=== PATIENT | female | born 1950 | race Caucasian/White ===

== ENCOUNTER 2025-03-12 23:08 | Inpatient (IN) | payer MEDICARE, OTHER, SELFPAY ==
[2025-03-12] VITALS (12 sets, daily range): BP systolic 99–176; BP diastolic 60–113; BMI 32.6; BMI 31.5
[2025-03-12 15:19] LABS: % Basophils 0.5 % (0-2); % Eosinophils 2.6 % (0-6); % Immature Granulocytes 0.3 % (0-0.5); % Monocytes 8.3 % (1.7-9.3); % Neutrophils 47.3 % (42.2-75.2); Absolute Basophils 0.1 10^3/uL (0-0.2); Absolute Eosinophils 0.3 10^3/uL (0-0.7); Absolute Lymphocytes 5.4 10^3/uL (1.2-3.4); Absolute Monocytes 1.1 10^3/uL (0.1-0.6); Absolute Neutrophils 6.2 10^3/uL (1.4-6.5); Hematocrit 40.2 % (37.0-47.0); Hemoglobin 13.4 g/dL (12.0-16.0); Mean Corp Hgb Conc. 33.3 g/dL (33.0-37.0); Mean Corpuscular Hgb 32.9 pg (27.0-31.0); Mean Corpuscular Volume 98.8 fL (81.0-99.0); Mean Platelet Volume 9.5 fL (7.4-10.4); Nucleated Red Blood Cells % 0 %; Platelet Count 342 10^3/uL (130-400); Red Blood Cell Count 4.07 10^6/uL (4.20-5.40); Red Cell Dist. Width 13.4 % (11.5-14.5); White Blood Cell Count 13.1 10^3/uL (4.8-10.8)
[2025-03-12 15:38] LABS: ALT (SGPT) 31 U/L (0-35); AST (SGOT) 27 U/L (14-36); Albumin 4.5 g/dl (3.5-5.0); Alkaline Phosphatase 55 U/L (38-126); Blood Urea Nitrogen 9 mg/dl (7-17); Calcium 9.3 mg/dl (8.4-10.2); Carbon Dioxide 28 mmol/L (22-30); Chloride 106 mmol/L (98-107); Glucose 119 mg/dl (70-99); Potassium 3.8 mmol/L (3.5-5.1); Sodium 140 mmol/L (135-145); Total Bilirubin 0.7 mg/dl (0.2-1.3); Total Protein 7.9 g/dl (6.3-8.2); eGFR > 60.00
--- NOTE | 2025-03-12 20:31 | ED.GENMED ---
History of Present Illness
General
Chief Complaint: Abdominal Pain
Source: patient
Time Seen by Provider: 03/12/25 20:24
History of Present Illness
History of Present Illness:
75-year-old female with past medical history of previous CVA, hypercholesterolemia and atrial fibrillation presenting to the emergency department for evaluation of right lower quadrant abdominal pain that started yesterday morning as generalized
abdominal pain which gradually moved to the right lower quadrant accompanied with mild nausea and today decreased p.o. intake to both solids and liquids. Patient denies any fevers, chills, rigors, bowel changes or urinary symptoms. She did not
take anything for symptoms prior to arrival. Denies any history of similar. Does note a surgical history of previous cholecystectomy, delivery and splenectomy.
Past History
Past History
ED Past Medical History: Arrthythmia, CVA and Hypercholesterolemia
ED Past Surgical History: Brain, Cholecystectomy and Other
Social History
Tobacco: Non-smoker
Alcohol: None
Drug: None
Personal:
Living: with family
Review of Systems
Review of Systems
All Other Systems: ROS reviewed and negative except as documented in HPI and ROS
Phy Exam
Physical Exam
Physical Exam:
GENERAL: Alert , in no apparent distress
EYE: clear conjunctiva b/l
HEAD: NCAT
ENT: mmm.
CARDIAC: Regular rate and rhythm .
LUNGS: Clear breath sounds bilaterally, no acute respiratory distress, no wheezes/rales/rhonchi
ABDOMEN: Firm, pain within the right lower quadrant , guarding with palpation of the right lower abdomen no cvat, negative Esparza sign, tenderness at McBurney's point
NEUROLOGICAL: Alert and oriented
SKIN: Warm and dry, skin intact.
MUSCULOSKELETAL: No edema, well perfused.
PSYCH: Normal and appropriate interaction.
Scores
Heart Failure Risk
Heart Failure Risk Score: Not Applicable
Heart Score for Chest Pain Patients
STEMI patient?: Not applicable
Withdrawal Assessment of Alcohol
Withdrawal Assessment Completed?: Not applicable
Course
Orders/Labs/Results
Orders:
Orders
03/12/25 15:06
CBC/With Diff [Complete Blood Count/With Diff] Urgent
Comprehensive Metabolic Panel Urgent
03/12/25 20:25
CT Abd/pelvis W Iv Cont Urgent
Comment:
Reason For Exam: lower abd pain
03/12/25 20:30
Morphine Sulfate 2 mg IV NOW STA
03/12/25 20:37
PTT Urgent
Prothrombin Time Urgent
03/12/25 21:34
Piperacillin/Tazo 3.375 Gram [Zosyn] 3.375 gram in 50 ml IV NOW
03/12/25 22:22
Admit/Transfer Patient As Directed
Co-Sign Provider:
Level of Care: Inpatient admission
Assign to:: Medical/Surgical
Physician / Group: Aida Aparicio
Diagnosis: acute appendicitis
Reason for Hospitalization: acute appendicitis
Expected length of stay greater than two midnights?: Yes
ELOS- Estimated Length of Stay in days: 3
I certify the patient meets the requirements for IP care: Yes
PRN Pain Medication Management As Directed
May give lesser potent ordered pain med per pt: Yes
preference::
Protocol:: Medication orders for pain may be administered in a
manner that supports deferring to patient preference
when the pt is:
- Requesting an ordered lesser potent pain medication.
Least to most potent pain medications are defined
as: acetaminophen < NSAID < tramadol < opioids
(morphine, oxycodone, hydromorphone).
- Requesting a lesser dose of the same medication IF
ORDERED.
- Requesting a less intrusive route of administration
if both routes are prescribed by the provider (PO <
IV).
03/12/25 22:23
Code Status As Directed
Resuscitation Status: Full Code
03/12/25 23:00
Flush (0.9% Sodium Chloride) [Flush (Nss)] See Dose Instructions IV PER PROTOCOL
Abnormal Lab Results
03/12/25
15:06
WBC 13.1 H 10^3/uL
(4.8-10.8)
RBC 4.07 L 10^6/uL
(4.20-5.40)
MCH 32.9 H pg
(27.0-31.0)
Absolute Lymphs (auto) 5.4 H 10^3/uL
(1.2-3.4)
Absolute Monos (auto) 1.1 H 10^3/uL
(0.1-0.6)
Glucose 119 H mg/dl
(70-99)
03/12/25 15:06
03/12/25 15:06
Vital Signs
Initial and Last Documented VS:
Initial Vital Signs
Temp Pulse Resp BP Pulse Ox
98.7 F 79 16 142/89 94
03/12/25 14:57 03/12/25 14:57 03/12/25 14:57 03/12/25 14:57 03/12/25 14:57
Last Documented Vital Signs
Temp Pulse Resp BP Pulse Ox
98.7 F 78 22 144/89 90
03/12/25 14:57 03/12/25 21:30 03/12/25 21:30 03/12/25 21:46 03/12/25 21:30
MDM/Problems Addressed
Differential Diagnosis Includes:
Appendicitis, renal/ureteral colic, diverticulitis, pancreatitis
MDM/Problems Addressed:
75-year-old female presenting to the ER for 1+ day of abdominal pain, initially generalized now isolated to the right lower quadrant. Patient's abdomen is firm, somewhat rigid and tender within the right lower quadrant. I have high degree of
suspicion for acute appendicitis. Labs were initiated on arrival which does show a leukocytosis of 13,000. Patient is on Eliquis due to her A-fib history, last dose was at 8 AM this morning. Currently in a normal sinus rhythm. Patient to be kept
NPO. CT of the abdomen and pelvis ordered. Morphine ordered for pain control (has tolerated this without any difficult past). Disposition pending
*Radiology
Radiology exam reviewed: radiology read reviewed
*Pulse Oximetry
Patient hypoxic: no
*Critical Care Note
Total Time (30-74mins, 75-104mins- exclusive of procedures): Not Applicable
Patient Management
Discussion with other providers: Hospitalist and [employer]osed [employer] Screen Watcher
Escalation/DeEscalation of care consider admission/obs:
Patient has acute uncomplicated appendicitis on CT. d/w general surgery. request admit to hospitalist team given patient is on Eliquis. Agrees with plan for antibiotics, keep n.p.o. Will evaluate in the morning. Hospitalist team is aware and
accepts for continued evaluation and treatment.
ED Attending Note
-
Portions of this chart may have been created with voice recognition software.� Occasional wrong word or��sound alike� substitutions may have occurred due to the inherent limitations of voice recognition software.
Discharge Plan
Departure
Patient Disposition: Admit
Date of Disposition: 03/12/25
Time of Disposition: 21:34
Presentation/result/management discussed w/ accepting /: Yovanny
Discharge Problem:
Acute appendicitis
Prescriptions:
No Action
atorvastatin 10 mg Tablet
10 mg PO HS
diltiazem HCl 180 mg Capsule,Extended Release 24hr
180 mg PO DAILY
aspirin 81 mg Tablet,Delayed Release (Dr/Ec)
81 mg PO DAILY
omeprazole 20 mg Capsule,Delayed Release(Dr/Ec)
20 mg PO DAILY
furosemide 20 mg Tablet
20 mg PO Q OTHER DAY
Eliquis 5 mg Tablet
5 mg PO BID
Referrals:
Abhishek Hung MD [Family Provider] -
Interventions
Interventions:
*Risk Screen - Suicide Last Done: 03/12/25 21:10
*General Assessment Last Done: 03/12/25 21:10
*Neglect/Abuse Screening Last Done: 03/12/25 14:57
*ED- Fall Risk Assessment Last Done: 03/12/25 21:10
*ED COVID-19 Vaccine History Last Done: 03/12/25 21:10
WT-Cngmjg-Krqtvxnpop Assessment Last Done: 03/12/25 21:10
Discharge Date and Time
Print Language: FRISIAN
[2025-03-12 20:55] LABS: INR 1.04; PT 14.1 Sec (11.4-14.6)
[2025-03-12 20:56] LABS: APTT 32.9 Sec (23.4-35.0)
--- NOTE | 2025-03-12 21:34 | EDRN ---
Patient has allergy to oxycodone. She has had tongue swelling when given once. Patient has had morphine IV with previous admissions without reactions
[2025-03-12] MEDS: ZOSYN 50 IV (21:55)
[2025-03-12] MEDS: MORPHINE SULFATE 2 MG IV (21:56)
--- NOTE | 2025-03-12 21:56 | HPS.HSE ---
Family Physician
-
Family Physician: Damon Hung
Chief Complaint
-
right lower quadrant abdominal pain
History of Present Illness
Patient is a 75-year-old female with past medical history significant for Hx CVA, hypercholesterolemia and atrial fibrillation who presented to [facility] ED for evaluation of right lower quadrant abdominal pain. Patient reports that pain started early
yesterday morning with associated diarrhea yesterday. She does report exertional dyspnea that is her baseline. Patient denies any fever, chills, cough, chest pain, nausea, vomiting, constipation or urinary symptoms.
Medical History
Past Medical History
Past Medical History: Reports Other
Additional Past Medical History:
Hx CVA
hypercholesterolemia
atrial fibrillation
Past Surgical History: Reports Other
Additional Past Surgical History:
brain biopsy 1988 benign
Lumpectomy rt 2003 [facility]
ruptured spleen
cholecystectomy
section x2
[facility]
cataract bilateral
Social History
Tobacco: Former Smoker (quit 30+ years ago)
Alcohol: Occasional (2 glasses of wine 3-4x a week)
Drug: None
Personal:
Living: With Family
Employment: Retired
Family History
Family History: Not pertinent
Allergies / Home Medications
Allergies reflects when Allergies were last updated in [facility].
Home Medications with original date entered in [facility]
Allergy/Medication List:
Allergies
Allergy/AdvReac Type Severity Reaction Status Date / Time
oxycodone [From Percocet] Allergy Severe Tongue Verified 03/12/25 21:39
Swelling
Home Medications
apixaban 5 mg tablet (Eliquis) 5 mg PO BID 03/12/25
aspirin 81 mg tablet,delayed release 81 mg PO DAILY 03/12/25
atorvastatin 10 mg tablet 10 mg PO HS 03/12/25
diltiazem HCl 180 mg capsule,extended release 24 hr 180 mg PO DAILY 03/12/25
furosemide 20 mg tablet 20 mg PO Q OTHER DAY 03/12/25
omeprazole 20 mg capsule,delayed release 20 mg PO DAILY 03/12/25
Review of Systems
-
History Source: Patient
Constitutional: Reports Chills
EENT: Reports No Symptoms
Respiratory: Reports Trouble Breathing (exertional SOB)
Cardiac: Reports No Symptoms
Abdomen/GI: Reports Abdominal Pain and Diarrhea
: Reports No Symptoms
Musculoskeletal: Reports No Symptoms
Skin: Reports No Symptoms
Neurological: Reports No Symptoms
Endocrine: Reports No Symptoms
Hematologic/Lymphatic: Reports No Symptoms
Psych: Reports No Symptoms
Physical Exam
Vital Signs
Vital Signs
Temp Pulse Resp BP Pulse Ox
98.7 F 78 22 144/89 90
03/12/25 14:57 03/12/25 21:30 03/12/25 21:30 03/12/25 21:46 03/12/25 21:30
Physical Exam
General: Well Developed, Well Nourished, No Apparent Distress, Comfortable and Conversant
HEENT: NormoCephalic, Moist mucous membranes, Atraumatic, Nose Appears Normal and Ears Appear Normal
Respiratory: Clear and Non Labored Respirations
Cardiac: S1/S2 and Regular Rhythm
Breast: Deferred by me
GI: Soft, Normal Bowel Sounds and Tender
Rectal: Deferred by Provider
Musculoskeletal: No Clubbing, No Cyanosis, Edema, Left Lower Extremity and Edema, Right Lower Extremity
Skin: Warm and IV/Catheter Site
Neuro: Awake, Alert, AO x 3 and Nonfocal/grossly intact
Hematologic/Lymphatic: No Lymphadenopathy
Psych: Calm and Intact Judgment/Insight
Laboratory Results
-
03/12/25 15:06
03/12/25 15:06
Laboratory Results
PT 14.1 Sec (11.4-14.6) 03/12/25 20:37
INR 1.04 03/12/25 20:37
APTT 32.9 Sec (23.4-35.0) 03/12/25 20:37
Total Bilirubin 0.7 mg/dl (0.2-1.3) 03/12/25 15:06
AST 27 U/L (14-36) 03/12/25 15:06
ALT 31 U/L (0-35) 03/12/25 15:06
Alkaline Phosphatase 55 U/L (38-126) 03/12/25 15:06
Data Reviewed
-
CT Scan: Report Reviewed by me (Abd/Pel: As described, CT findings highly suggestive of acute appendicitis. No evidence for abscess. No evidence for free intraperitoneal air. Increased peripheral interstitial markings in the visualized lower lungs,
likely mild interstitial fibrosis. Status post splenectomy with elevation of the )
Lab Data: Labs Reviewed by me (WBC 13.1, )
Impression/Plan
-
IMPRESSION/PLAN:
#acute appendicitis
right lower quadrant abdominal pain
WBC 13.1
Abd/Pel CT: As described, CT findings highly suggestive of acute appendicitis. No evidence for abscess. No evidence for free intraperitoneal air.
Increased peripheral interstitial markings in the visualized lower lungs, likely mild interstitial fibrosis.
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
Fatty infiltration of the liver.
Findings communicated by René coles with Johnson Garcia in the emergency department on March 12, 2025 at 2130 hours.
- Admit to med/surg
- Consult surgery
- pain regimen
- antiemetics
- supportive care
#hypercholesterolemia
- continue atorvastatin
#atrial fibrillation
- continue diltiazem
- hold Eliquis
#Hx CVA
- continue aspirin
#lower extremity edema
- continue Lasix
Code status: full code
DVT prophylaxis: SCDs
--- NOTE | 2025-03-12 22:16 | W.PN.UPDATE ---
Update Note
Progress Note Update
This is an addendum to H&P written by Roslyn Benavides on 03/12/2025.� Patient seen and examined independently with GUIDE DOG INSTRUCTOR.
75-year-old female past medical history of paroxysmal atrial fibrillation on Eliquis last taken at 8 AM this morning, prior CVA with linq monitor, COPD intermittently uses oxygen, hypercholesteremia, presenting with right lower quadrant abdominal
pain with mild nausea and decreased p.o. intake.� No fevers or chills.
Labs show leukocytosis.
CT abdomen pelvis shows acute appendicitis.� Increased peripheral interstitial markings likely interstitial fibrosis.
Patient with acute appendicitis.� N.p.o., gentle�IV fluids, hold Lasix, Zosyn, general surgery consulted.� Jennifer held.
[2025-03-12] MEDS: NSS 1000 IV (23:55)
[2025-03-13 00:49] VITALS: BMI 31.5
--- NOTE | 2025-03-13 01:05 | PTCARENOTE ---
Patient arrived to unit via stretcher around 23:30 with dx of Acute Appendicitis. AAOx3. Pleasant and cooperative with care. No signs of distress. Pain controlled at current time. Vitals stable. [address] at 2 liters post Morphine given in ED.
Oriented to unit. Call banerjee within reach.
[2025-03-13 07:00] VITALS: BP 109/69
--- NOTE | 2025-03-13 07:35 | W.PN.HOSP.TC ---
Today's Communication/Plan
-
Antibiotics.
Assessment / Plan
Assessment / Plan
Physical exam:
General: Acutely ill
HEENT: Normocephalic, Atraumatic and Moist Mucous Membranes
Respiratory: Clear to Auscultation; Negative Wheezes, Rales or Rhonchi
Cardiac: Regular Rhythm and S1/S2
GI: Soft, tender and Nondistended
Musculoskeletal: No Clubbing, No Cyanosis and No Edema
Neuro: Awake, Alert and Oriented
Psych: Calm
A/P:
Acute appendicitis:
Clear liquid diet today
Stop IV fluids
Restart IV antibiotics today, IV Zosyn
Surgery consult appreciated-plan for the OR tomorrow
History embolic CVA:
On antiplatelets, statins.
Holding anticoagulation
Paroxysmal A-fib:
Holding Eliquis-last dose yesterday morning 03/12
Continue Cardizem 180 mg daily
Hyperlipidemia:
Continue home statin
Chronic HFpEF:
Resume diuretics, Lasix 20 mg every 48 hours
Hold IV fluids
DVT prophylaxis:
SCDs
CODE STATUS:
Full code
Anticipated Discharge: 24 - 48 hours
Subjective/Interval History
-
Date of Service: March 13, 2025
Patient continues to have abdominal pain but much less than admission. No nausea or vomiting. No chest pain or shortness of breath. Afebrile
Objective Data
-
Labs:
Laboratory Results
03/12/25 03/13/25
20:37 07:17
WBC Pending
Hgb Pending
Hct Pending
Plt Count Pending
PT 14.1
INR 1.04
APTT 32.9
Sodium Pending
Potassium Pending
Chloride Pending
Carbon Dioxide Pending
BUN Pending
Creatinine Pending
Glucose Pending
Calcium Pending
Vital Signs:
Vital Signs
Temp Pulse Resp BP Pulse Ox
97.9 F 80 18 156/73 96
03/12/25 23:41 03/12/25 23:41 03/12/25 23:41 03/12/25 23:41 03/12/25 23:41
I&O
03/12/25 03/13/25 03/14/25
06:59 06:59 06:59
Intake Total 490 / 490
Balance 490 / 490
[2025-03-13 08:04] LABS: Hematocrit 40.5 % (37.0-47.0); Hemoglobin 13.4 g/dL (12.0-16.0); Mean Corp Hgb Conc. 33.1 g/dL (33.0-37.0); Mean Corpuscular Volume 99.8 fL (81.0-99.0); Mean Platelet Volume 9.8 fL (7.4-10.4); Platelet Count 340 10^3/uL (130-400); Red Blood Cell Count 4.06 10^6/uL (4.20-5.40); Red Cell Dist. Width 13.6 % (11.5-14.5); White Blood Cell Count 8.3 10^3/uL (4.8-10.8)
[2025-03-13 08:44] LABS: Blood Urea Nitrogen 8 mg/dl (7-17); Calcium 9.3 mg/dl (8.4-10.2); Carbon Dioxide 26 mmol/L (22-30); Chloride 107 mmol/L (98-107); Estimated Creatinine Clearance 79 ml/min; Glucose 115 mg/dl (70-99); Potassium 4.1 mmol/L (3.5-5.1); Sodium 139 mmol/L (135-145); eGFR > 60.00
[2025-03-13] MEDS: CARDIZEM CD 180 MG PO (09:02)
[2025-03-13] MEDS: ZOSYN 50 IV ×3 (09:02→20:22)
[2025-03-13] MEDS: ASPIR LOW (ENTERIC COATED) 81 MG PO (09:02)
[2025-03-13] MEDS: LASIX 20 MG PO (09:03)
[2025-03-13] MEDS: PROTONIX 40 MG PO (09:03)
--- NOTE | 2025-03-13 10:28 | CON.GS ---
Consultation
-
Date/Time Consultation Performed: 03/13/25
Requesting Provider: Chelsi
Performing Provider: Leesa
Reason for Consultation: Acute appendicitis
Medical History
-
Chief Complaint: Abd pain
History of Present Illness:
75F with acute onset abd pain that began 3 days ago as generalized abd pain and has since migrated to the [facility]. No radiation. A/w nausea, denies vomiting. Denies changes to urine, endorses diarrhea. Endorses mild anorexia. Denies f/c. On eliquis for
afib, last dose yesterday 10am. Reports improvement of pain overnight.
Past Medical History
Past Medical History: Other (CVA hypercholesterolemia atrial fibrillation)
Past Surgical History: Other (brain biopsy 1988 benign Lumpectomy rt 2003 [facility] ruptured spleen cholecystectomy section x2 rt breast bx 2003 [facility]. cataract bilateral)
Social History
Tobacco: Former Smoker
Alcohol: Occasional
Drug: None
Personal:
Living: With Family
Family History
Family History: Reviewed & Noncontributory
Allergies / Home Medications
Allergy/AdvReac Type Severity Reaction Status Date / Time
oxycodone [From Percocet] Allergy Tongue Verified 03/12/25 23:40
Swelling
�Medication �Instructions �Recorded �Confirmed �Type
apixaban 5 mg tablet (Eliquis) 5 mg PO BID 03/12/25 03/12/25 History
aspirin 81 mg tablet,delayed 81 mg PO DAILY 03/12/25 03/12/25 History
release
atorvastatin 10 mg tablet 10 mg PO HS 03/12/25 03/12/25 History
diltiazem HCl 180 mg 180 mg PO DAILY 03/12/25 03/12/25 History
capsule,extended release 24 hr
furosemide 20 mg tablet 20 mg PO Q OTHER DAY 03/12/25 03/12/25 History
omeprazole 20 mg capsule,delayed 20 mg PO DAILY 03/12/25 03/12/25 History
release
Review of Systems
-
A 10 point review of systems was completed, and was negative except as per HPI.
Physical Exam
Vital Signs
Temp Pulse Resp BP Pulse Ox
97.8 F 72 18 109/69 90
03/13/25 07:00 03/13/25 07:00 03/13/25 07:00 03/13/25 07:00 03/13/25 07:00
03/12/25 03/13/25 03/14/25
06:59 06:59 06:59
Actual Weight 88.507 kg
Body Mass Index (BMI) 31.5
Lab Results
03/13/25 07:17
03/13/25 07:17
WBC 8.3 10^3/uL (4.8-10.8) 03/13/25 07:17
Hgb 13.4 g/dL (12.0-16.0) 03/13/25 07:17
Hct 40.5 % (37.0-47.0) 03/13/25 07:17
Plt Count 340 10^3/uL (130-400) 03/13/25 07:17
Abs Immat Gran (auto) 0.0 10^3/uL (0-0.05) 03/12/25 15:06
Neutrophils % 47.3 % (42.2-75.2) 03/12/25 15:06
Physical Exam
General: Well Developed, Well Nourished and No Apparent Distress
GI: Soft, Non Distended, Tender (mild ttp to rlq, rovsing's negative, no r/r/g) and Obese
Skin: Warm and Dry
Neuro: AO x 3
Psych: Calm
Data Reviewed
-
CT Scan: Image Personally Visualized and interpreted, Report Reviewed by me and Discussed with Patient
Labs: Labs Reviewed by me and Discussed with Patient
Assessment / Plan
-
75F with uncomplicated acute appendicitis on eliquis
AFVSS, pain reportedly improved, remains ttp to rlq
Leukocytosis normalized
CT with mild stranding around appendix, no appendicolith, no sign of perforation or abscess
Given uncomplicated nature of appendicitis, clinical stability, and clinical / biochemical improvement, would defer surgery an additional 24 hours to allow eliquis washout and reduce risk of surgical bleeding
Plan:
CLD
IV abx
PRN pain meds
DVT ppx
NPO@MN for tentative lap appy tomorrow
[2025-03-13] MEDS: MORPHINE SULFATE 2 MG IV ×2 (13:17→20:30)
--- NOTE | 2025-03-13 14:45 | CM ---
Patient seen bedside, initial assessment completed. Patient is a 75-year-old female with past medical history significant for Hx CVA, hypercholesterolemia and atrial fibrillation who presented to [facility] ED for evaluation of right lower quadrant
abdominal pain.
Patient resides w/ spouse in a single story rancher style home- 1 small step to enter. Independent in all areas, has home O2 but does not use. Denies SNF/HC hx reported.
Address, point of contact and insurance
PCP: Fahad Hung
Pharmacy: [facility]
On IV abx, plan for OR tomorrow
Plan: Home, no needs likely
[2025-03-13 15:00] VITALS: BP 130/76
[2025-03-13] MEDS: LIPITOR 10 MG PO (20:23)
[2025-03-13 22:40] VITALS: BP 106/57
[2025-03-14] VITALS (15 sets, daily range): BP systolic 106–146; BP diastolic 57–91; BMI 31.4
[2025-03-14] MEDS: ZOSYN 50 IV ×4 (01:51→20:25)
[2025-03-14] MEDS: ASPIR LOW (ENTERIC COATED) PO (01:54)
[2025-03-14] MEDS: CARDIZEM CD PO (01:55)
[2025-03-14] MEDS: PROTONIX PO (01:55)
--- NOTE | 2025-03-14 01:55 | PTCARENOTE ---
Patient strict NPO at midnight therefore, no medications and/or clear liquids. AAO x 3, pleasant and cooperative. PRN IV morphine administered for RLQ pain management. OOB independent. Patient uses call banerjee appropriately. Anticipate appendectomy in
the AM. Eliquis on hold. Bed in lowest position. Call banerjee and personal belongings within reach.
[2025-03-14 07:12] LABS: % Eosinophils 4.7 % (0-6); % Immature Granulocytes 0.3 % (0-0.5); % Monocytes 9.4 % (1.7-9.3); % Neutrophils 42.6 % (42.2-75.2); Absolute Basophils 0.1 10^3/uL (0-0.2); Absolute Eosinophils 0.4 10^3/uL (0-0.7); Absolute Lymphocytes 3.3 10^3/uL (1.2-3.4); Absolute Monocytes 0.7 10^3/uL (0.1-0.6); Absolute Neutrophils 3.3 10^3/uL (1.4-6.5); Hematocrit 42.6 % (37.0-47.0); Hemoglobin 14.1 g/dL (12.0-16.0); Mean Corp Hgb Conc. 33.1 g/dL (33.0-37.0); Mean Corpuscular Hgb 33.1 pg (27.0-31.0); Mean Platelet Volume 9.5 fL (7.4-10.4); Nucleated Red Blood Cells % 0 %; Platelet Count 392 10^3/uL (130-400); Red Blood Cell Count 4.26 10^6/uL (4.20-5.40); Red Cell Dist. Width 13.6 % (11.5-14.5); White Blood Cell Count 7.8 10^3/uL (4.8-10.8)
[2025-03-14 07:39] LABS: Blood Urea Nitrogen 6 mg/dl (7-17); Calcium 9.4 mg/dl (8.4-10.2); Carbon Dioxide 33 mmol/L (22-30); Chloride 106 mmol/L (98-107); Estimated Creatinine Clearance 79 ml/min; Glucose 112 mg/dl (70-99); Potassium 4.6 mmol/L (3.5-5.1); Sodium 143 mmol/L (135-145); eGFR > 60.00
[2025-03-14] MEDS: MORPHINE SULFATE 2 MG IV (08:09)
--- NOTE | 2025-03-14 08:33 | W.PN.HOSP.TC ---
Today's Communication/Plan
-
Plan for surgery today-appendectomy
Assessment / Plan
Assessment / Plan
Physical exam:
General: Acutely ill
HEENT: Normocephalic, Atraumatic and Moist Mucous Membranes
Respiratory: Clear to Auscultation; Negative Wheezes, Rales or Rhonchi
Cardiac: Regular Rhythm and S1/S2
GI: Soft, tender and Nondistended
Musculoskeletal: No Clubbing, No Cyanosis and No Edema
Neuro: Awake, Alert and Oriented
Psych: Calm
A/P:
Acute appendicitis:
Npo today
Off IV fluids
On IV antibiotics, Zosyn
Surgery consult appreciated-plan for the OR today
History embolic CVA:
On antiplatelets, statins.
Holding anticoagulation
Paroxysmal A-fib:
Holding Eliquis-last dose morning 03/12
Continue Cardizem 180 mg daily
Hyperlipidemia:
Continue home statin
Chronic HFpEF:
Resume diuretics, Lasix 20 mg every 48 hours
Hold IV fluids
DVT prophylaxis:
SCDs
CODE STATUS:
Full code
Anticipated Discharge: Within 24 hours
Subjective/Interval History
-
Date of Service: March 14, 2025
Patient still having abdominal pain. No nausea or vomiting. Afebrile
Objective Data
-
Labs:
Laboratory Results
03/14/25
06:38
WBC 7.8
Hgb 14.1
Hct 42.6
Plt Count 392
Sodium 143
Potassium 4.6
Chloride 106
Carbon Dioxide 33 H
BUN 6 L
Creatinine 0.7
Glucose 112 H
Calcium 9.4
Vital Signs:
Vital Signs
Temp Pulse Resp BP Pulse Ox
97.9 F 74 18 106/57 93
03/13/25 22:40 03/13/25 22:40 03/13/25 22:40 03/13/25 22:40 03/13/25 22:40
I&O
03/13/25 03/14/25 03/15/25
06:59 06:59 06:59
Intake Total 490 / 490 540 / 540
Balance 490 / 490 540 / 540
--- NOTE | 2025-03-14 09:05 | W.PN.GS2 ---
Today's Communication / Plan
-
-- Laparoscopic appendectomy
Assessment / Plan
-
Patient is a 75 yo F p/w acute appendicitis
AVSS
Labs with normalization of WBC
The natural history and pathophysiology of appendicitis was reviewed. CT scan imaging as a relates to her appendix was reviewed. CT demonstrates significant mid body inflammation of the appendix without any clear evidence of perforation or abscess
formation, there is close proximity of this portion of her inflammation with the terminal ileum which also courses and inserts in a more lateral location compared to the base of the appendix. Options for management were reviewed. Prior discussions
and decision on surgical management.
Plan for a laparoscopic appendectomy. The procedure itself, as well as the risks, benefits, and alternatives was discussed. Specifically, we discussed the risks of bleeding (increased risks, last dose > 48 hours), infection, injury to surrounding
structures, staple line leak, need for open procedure. We discussed that she is at increased risk for operative complications given her delay in surgical management, potential for adhesions given her multiple prior open procedures, and morbid
obesity. Typical postprocedural recovery was discussed. All questions answered. Consent signed.
-- Laparoscopic appendectomy
-- NPO, IVF
-- Abx: Zosyn
Subjective Data
-
Date of Service: March 14, 2025
Pain improved but persistent. No fevers or chills. No nausea or vomiting. Symptoms began on Tuesday.
Objective Data
-
Intake and Output
03/13/25 03/14/25 03/15/25
06:59 06:59 06:59
Intake Total 490 / 490 540 / 540
Balance 490 / 490 540 / 540
Intake:
Oral fluids 540 / 540
IV fluids (Total) 490 / 490
Other:
Number of approximated MODERATE 2
amounts of urine
Number of approximated LARGE 1
amounts of urine
Vital Signs
Temp Pulse Resp BP Pulse Ox
97.9 F 85 20 134/85 100
03/14/25 07:00 03/14/25 07:00 03/14/25 07:00 03/14/25 07:00 03/14/25 07:00
Lab Results
03/14/25 06:38
03/14/25 06:38
Calcium 9.4 mg/dl (8.4-10.2) 03/14/25 06:38
Total Bilirubin 0.7 mg/dl (0.2-1.3) 03/12/25 15:06
AST 27 U/L (14-36) 03/12/25 15:06
ALT 31 U/L (0-35) 03/12/25 15:06
Alkaline Phosphatase 55 U/L (38-126) 03/12/25 15:06
Total Protein 7.9 g/dl (6.3-8.2) 03/12/25 15:06
Albumin 4.5 g/dl (3.5-5.0) 03/12/25 15:06
Physical Exam
-
Gen: NAD
Abd: soft, obese, tender to palpation in RLQ, ND, non-peritoneal, multiple prior midline incisions with puckering and indentation of lower abdomen
Patient has a milner catheter: No
Patient has a central line: No
--- NOTE | 2025-03-14 09:12 | W.SUR.PREOP ---
Pre-Operative Surgical Note
-
I have examined this patient prior to the performance of the scheduled procedure.
The patient's condition is unchanged from the time of the current History and
Physical and the patient is able to undergo the scheduled procedure.
--- NOTE | 2025-03-14 11:19 | W.IMMPOSTOP ---
Surgical Immed Post Op Note
-
Primary Surgeon: Deniz
Assisting Surgeon: None
Pre-op Diagnosis: Acute appendicitis
Post-op Diagnosis: Acute appendicitis
Procedure Performed: Laparoscopic appendectomy
Anesthesia Type: General
Specimen / Cultures:
1. Appendix
Estimated Blood Loss: 3 cc
Complications: None
Operative Findings:
1. Acutely inflamed non-perforated appendix
2. Mesentery taken with Vojuvet, base with jackson load stapler flush with cecum
Plan:
-- No PO therapeutic anticoagulation for 48 hours post-op
-- Continue abx while in the hospital
[2025-03-14] MEDS: NORMOSOL-R/PLASMALYTE-A 1000 IV ×2 (13:35→13:36)
[2025-03-14] MEDS: ULTRAM 50 MG PO (16:13)
[2025-03-14] MEDS: LOVENOX 40 MG SC (16:50)
[2025-03-14] MEDS: DILAUDID 0.5 MG IV (21:06)
[2025-03-14] MEDS: LIPITOR 10 MG PO (21:07)
[2025-03-15] MEDS: ZOSYN 50 IV ×2 (01:07→07:58)
[2025-03-15] MEDS: ULTRAM 50 MG PO (01:10)
[2025-03-15 02:50] VITALS: BP 121/75
[2025-03-15 06:00] VITALS: BMI 31.8
[2025-03-15 06:33] LABS: Hematocrit 40.6 % (37.0-47.0); Hemoglobin 13.4 g/dL (12.0-16.0); Mean Corpuscular Hgb 32.7 pg (27.0-31.0); Mean Platelet Volume 9.3 fL (7.4-10.4); Platelet Count 384 10^3/uL (130-400); Red Cell Dist. Width 13.2 % (11.5-14.5)
[2025-03-15 06:56] LABS: Blood Urea Nitrogen 12 mg/dl (7-17); Calcium 9.4 mg/dl (8.4-10.2); Carbon Dioxide 29 mmol/L (22-30); Chloride 107 mmol/L (98-107); Estimated Creatinine Clearance 93 ml/min; Glucose 141 mg/dl (70-99); Potassium 4.6 mmol/L (3.5-5.1); Sodium 141 mmol/L (135-145); eGFR > 60.00
[2025-03-15 07:00] VITALS: BP 136/81
[2025-03-15] MEDS: ASPIR LOW (ENTERIC COATED) 81 MG PO (07:58)
[2025-03-15] MEDS: LASIX 20 MG PO (07:58)
[2025-03-15] MEDS: CARDIZEM CD 180 MG PO (07:58)
[2025-03-15] MEDS: PROTONIX 40 MG PO (07:58)
[2025-03-15] MEDS: DILAUDID 0.5 MG IV (08:09)
--- NOTE | 2025-03-15 09:42 | W.PN.GS2 ---
Today's Communication / Plan
-
Dispo planning
Assessment / Plan
-
Patient is a 75 yo F p/w acute appendicitis
POD #1 Lap appendectomy
AVSS
Mild leukocytosis (expected)
Mild distention but passing flatus/tolerating diet without n/v.
--Continue current diet
--ABX in the immediate post op period. Ok to d/c upon discharge
--OOB/Ambulate
--PO analgesics prn
--Hold Eliquis for 48 hours post operatively
--D/C instructions update/reviewed with patient
Ok for d/c from surgical standpoint, final dispo as per primary team
Subjective Data
-
Date of Service: March 15, 2025
Patient seen and examined at bedside. Denies n/v. Passing flatus. Tolerating diet. Some incisional and RLQ soreness but manageable.
Objective Data
-
Intake and Output
03/14/25 03/15/25 03/16/25
06:59 06:59 06:59
Intake Total 540 / 540 1560 / 1560
Output Total 0 / 0
Balance 540 / 540 1560 / 1560
Intake:
Oral fluids 540 / 540 960 / 960
IV fluids (Total) 500 / 500
normosol 100 / 100
IV piggybacks 100 / 100
Output:
Urine, Voided 0 / 0
Other:
Number of approximated MODERATE 2 3
amounts of urine
Vital Signs
Temp Pulse Resp BP Pulse Ox
97.8 F 85 18 121/75 91
03/15/25 02:50 03/15/25 02:50 03/15/25 02:50 03/15/25 02:50 03/15/25 02:50
Lab Results
03/15/25 06:23
03/15/25 06:23
Calcium 9.4 mg/dl (8.4-10.2) 03/15/25 06:23
Total Bilirubin 0.7 mg/dl (0.2-1.3) 03/12/25 15:06
AST 27 U/L (14-36) 03/12/25 15:06
ALT 31 U/L (0-35) 03/12/25 15:06
Alkaline Phosphatase 55 U/L (38-126) 03/12/25 15:06
Total Protein 7.9 g/dl (6.3-8.2) 03/12/25 15:06
Albumin 4.5 g/dl (3.5-5.0) 03/12/25 15:06
Physical Exam
-
NAD
Soft, mild distention, minimal incisional tenderness, vp director of finance
Incisions with intact glue, ecchymosis present. No erythema. Dried blood around periumbilical incision: not actively bleeding.
--- NOTE | 2025-03-15 10:26 | W.PN.HOSP.TC ---
Today's Communication/Plan
-
Discharge planning today
Assessment / Plan
Assessment / Plan
Physical exam:
General: No acute distress
HEENT: Normocephalic, Atraumatic and Moist Mucous Membranes
Respiratory: Clear to Auscultation; Negative Wheezes, Rales or Rhonchi
Cardiac: Regular Rhythm and S1/S2
GI: Soft, mild tender and Nondistended
Musculoskeletal: No Clubbing, No Cyanosis and No Edema
Neuro: Awake, Alert and Oriented
Psych: Calm
A/P:
Acute appendicitis:
Status post appendectomy
Finished course of antibiotics in house
Surgery cleared for discharge
History embolic CVA:
On antiplatelets, statins.
Holding anticoagulation and can resume 48 hours.
Paroxysmal A-fib:
Holding Eliquis-last dose morning 03/12--> can resume as above
Continue Cardizem 180 mg daily
Hyperlipidemia:
Continue home statin
Chronic HFpEF:
Resume diuretics, Lasix 20 mg every 48 hours
Hold IV fluids
DVT prophylaxis:
SCDs
CODE STATUS:
Full code
Anticipated Discharge: Today
Subjective/Interval History
-
Date of Service: March 15, 2025
Abdominal pain improved. Tolerating diet
Objective Data
-
Labs:
Laboratory Results
03/15/25
06:23
WBC 12.0 H
Hgb 13.4
Hct 40.6
Plt Count 384
Sodium 141
Potassium 4.6
Chloride 107
Carbon Dioxide 29
BUN 12
Creatinine 0.6
Glucose 141 H
Calcium 9.4
Vital Signs:
Vital Signs
Temp Pulse Resp BP Pulse Ox
97.9 F 78 19 136/81 91
03/15/25 07:00 03/15/25 07:00 03/15/25 07:00 03/15/25 07:00 03/15/25 07:00
I&O
03/14/25 03/15/25 03/16/25
06:59 06:59 06:59
Intake Total 540 / 540 1560 / 1560
Output Total 0 / 0
Balance 540 / 540 1560 / 1560
--- NOTE | 2025-03-15 10:26 | W.DCSUMMARY ---
Discharge Summary
Discharge Data
Date of Admission: 03/12/25
Date of Discharge: 03/15/25
Total time spent discharging patient (in min): 35
-
Pending Results: No
Hospital Course
Patient is 75 years old female with history of CVA, hyperlipidemia, A-fib, came into the hospital abdominal pain and found to have acute appendicitis. Surgery was consulted. She was kept n.p.o. IV fluids and broad-spectrum antibiotics. Patient
had been taken Eliquis prior to her presentation send this needed to be held. Surgery with laparoscopic appendectomy occurred on 03/14. Patient did well postop and tolerated diet well. Surgery recommended restart anticoagulation 48 hours postop.
Otherwise, patient hemodynamically stable and afebrile and ambulating well and tolerating diet as well. Surgery cleared her for discharge. She will be discharged in stable condition today.
Discharge duration: 35 minutes
Discharge Plan
-
Patient Disposition: Home (Routine Discharge)
Discharge Diagnosis/Procedures: Appendicitis status post laparoscopic appendectomy
Diet: As tolerated and Regular
Activity: No strenuous activity
Additional Activity: Do not lift over 15lbs for the next 2-3 weeks
Driving Restrictions: No driving for 24 hours
Bathing Restrictions: OK to Shower
Wound Care: Allow the glue to flake off your incisions over the next 2-3 weeks. Avoid scrubbing or picking the glue off as well as swimming/soaking in tubs or pools during this time
Activity Restrictions/Additional Instructions:
Call your surgeon if you have nausea with vomiting, fever >101, or worsening pain
Referrals:
Abhishek Hung MD [Family Provider] - in less than 1 week
Pedro Guaman MD [Active] - in two to four weeks
Prescriptions:
New
tramadol 50 mg Tablet
50 mg PO Q6HPRN PRN (Reason: severe pain) Qty: 14 0RF
Continued
atorvastatin 10 mg Tablet
10 mg PO HS
diltiazem HCl 180 mg Capsule,Extended Release 24hr
180 mg PO DAILY
aspirin 81 mg Tablet,Delayed Release (Dr/Ec)
81 mg PO DAILY
omeprazole 20 mg Capsule,Delayed Release(Dr/Ec)
20 mg PO DAILY
furosemide 20 mg Tablet
20 mg PO Q OTHER DAY
Held
Eliquis 5 mg Tablet
5 mg PO BID
Hold Instructions: Resume on 03/16/25. Resume for your evening dose
Discharge Orders:
Discharge Patient (As Directed); Ordered 03/15/25
Ordered By: Tre Gagnon
Discharge Date and Time
Discharge Date/Time: 03/15/25 13:18
Print Language: [place]
--- NOTE | 2025-03-15 12:23 | CM ---
Patient stable for d/c today
Met w/ patient bedside, agreeable for d/c. IMM verbally reviewed, copy given to patient, copy on chart
Spouse will transport
No CM needs identified at this time
Plan: Home, no needs
== END 2025-03-15 13:18 | disposition home or self-care (01) | DRG 398 ==
LOC: 4 WEST ACU 23:08
PROVIDERS: Nurse Practitioner Family; Physician Assistant Medical; Student in an Organized Health Care Education/Training Program; Surgery; ADMITTING PHYSICIAN Hospitalist; ATTENDING PHYSICIAN Hospitalist; EMERGENCY PHYSICIAN Emergency Medicine; FAMILY PHYSICIAN Internal Medicine; OTHER PHYSICIAN Surgery
PROC: 0DTJ4ZZ Resection of Appendix, Percutaneous Endoscopic Approach (ICD-10-PCS; 2025-03-14)
DX: K35.80 Unspecified acute appendicitis (principal); I50.32 Chronic diastolic (congestive) heart failure; E78.00 Pure hypercholesterolemia, unspecified; Z86.73 Personal history of transient ischemic attack (TIA), and cerebral infarction without residual deficits; Z87.891 Personal history of nicotine dependence; Z79.82 Long term (current) use of aspirin; Z79.01 Long term (current) use of anticoagulants; Z79.899 Other long term (current) drug therapy; Z90.81 Acquired absence of spleen; I48.0 Paroxysmal atrial fibrillation; E66.9 Obesity, unspecified; Z68.31 Body mass index [BMI] 31.0-31.9, adult; J84.10 Pulmonary fibrosis, unspecified; K66.0 Peritoneal adhesions (postprocedural) (postinfection); K76.0 Fatty (change of) liver, not elsewhere classified
CPT/HCPCS: 88304; 74177; 80048; 80053; 85025; 85027; 85610; 85730; 96365; 96375; 99284; C1776; Q9967